=== PATIENT | male | born 1960 | race Caucasian/White ===

== ENCOUNTER 2019-04-19 07:41 | Inpatient (IN) | payer BC ==
[~2019-04-19] VITALS: Ht 172.7 cm; Wt 93.9 kg
[2019-04-19] VITALS (20 sets, daily range): BP systolic 125–161; BP diastolic 74–88; PULSE 58–98; RESP 10–16; Ht 172.7 cm; Wt 93.9 kg
[2019-04-19] MEDS ORDERED: CARV3.1260 PO (08:37)
[2019-04-19] MEDS ORDERED: CLOP75TA27 PO (08:37)
[2019-04-19] MEDS ORDERED: ASPI81TA52 PO (08:38)
[2019-04-19] MEDS ORDERED: NITR0.4T39 SL (08:38)
--- NOTE | 2019-04-19 08:47 | RADRPT ---
Vent Rate: 75 bpm RR Interval: 804 msec [place] Interval: 141 msec QRS Duration: 90 msec QT Interval: 393 msec QTC Interval: 438 msec P-R-T [place]: 44 - -18 - 178 degrees Sinus rhythm. anterior infarct, age indeterminate.. nonspecific ST T abn abnormal ECG Electronically Signed By: Michael Oro
[2019-04-19] MEDS: SOD CHLORIDE 0.9% 1,000 ML IV SCH (08:57)
[2019-04-19] MEDS ORDERED: IODIXANOL LOCM 100 ML BTL ONE ×6 (09:26→11:43)
[2019-04-19] MEDS ORDERED: MIDAZOLAM 1 MG/ML 2 ML INJ ONE (09:26)
[2019-04-19] MEDS ORDERED: LIDOCAINE 1% (MDV) 20 ML INJ ONE ×2 (09:26→10:33)
[2019-04-19] MEDS ORDERED: HEPARIN 1000 UNITS/ML 10 ML INJ ONE (09:26)
[2019-04-19] MEDS ORDERED: VERAPAMIL 5 MG INJ ONE (09:26)
[2019-04-19] MEDS ORDERED: NITROGLYCERIN (IC) 100 MCG/ML INJ ONE (09:27)
[2019-04-19] MEDS ORDERED: DIAZEPAM 5 MG TAB PO ONE (09:30)
[2019-04-19] MEDS ORDERED: DIPHENHYDRAMINE 50 MG CAP PO ONE (09:30)
[2019-04-19] MEDS ORDERED: FAMOTIDINE 20 MG TAB PO ONE (09:30)
[2019-04-19] MEDS ORDERED: FENTAnyl 50 MCG/ML VIAL ONE (09:40)
[2019-04-19] MEDS ORDERED: DIPHENHYDRAMINE 50 MG INJ ONE (09:41)
[2019-04-19] MEDS ORDERED: BIVALIRUDIN 250MG /NS 50 ML 50 ML IVPB ONE ×2 (11:17→11:29)
[2019-04-19] MEDS ORDERED: ASPIRIN 325 MG TAB ONE (11:50)
[2019-04-19] MEDS ORDERED: CLOPIDOGREL 300 MG TAB ONE (11:50)
[2019-04-19] MEDS ORDERED: IOHEXOL 350MG/ML 50 ML BTL ONE (11:56)
--- NOTE | 2019-04-19 12:29 | SIPON ---
Date/Time of Note Date/Time of Note DATE: 04/19/19 TIME: 12:27 Operative Report Preoperative Diagnosis 1.abnl stress test 2.PREOP Postoperative Diagnosis 1.obstructive cad s/i stent x 1 to [place] LAD with PARI 2.CORPORATE AFFAIRS MANAGER to R common illiac 3.CORPORATE AFFAIRS MANAGER to R ext illiac Operation/Procedure Performed 1.[facility] 2.peripheral angio 3.PTCA/stent to [place] LAD 3.0 x 28 mm PARI 4.CORPORATE AFFAIRS MANAGER to R common illiac 5.CORPORATE AFFAIRS MANAGER to R ext illiac Surgeon see signature line catering administrative assistant 1.Kike Anesthesia: moderate sedation Estimated blood loss: minimal Transfusion Required none Specimen none Grafts/Implants none Complications none CHERELLE BARDALES April 19, 2019 12:29
[2019-04-19] MEDS ORDERED: AL HYDROX/MG HYDROX/SIMETH 30 ML CUP PO PRN (12:30)
[2019-04-19] MEDS ORDERED: ACETAMINOPHEN 325 MG TAB PO PRN (12:30)
[2019-04-19] MEDS ORDERED: ONDANSETRON 4 MG INJ IV PRN (12:30)
[2019-04-19] MEDS ORDERED: OXYCODONE/ACETAMINOPHEN (5/325) TAB PO PRN (12:30)
[2019-04-19] MEDS: morphine 2 MG INJ IV PRN ×3 (13:15→20:39)
[2019-04-19] MEDS ORDERED: hydrALAzine 20 MG INJ IV PRN (16:00)
--- NOTE | 2019-04-19 17:01 | HP ---
Date/Time of Note Date/Time of Note DATE: 04/19/19 TIME: 17:01 Assessment/Plan VTE Prophylaxis SCD applied (from Nsg): No SCD contraindicated: other Pharmacological prophylaxis: NA/contraindicated Pharm contraindication: surgical contra Lines/Catheters IV Catheter Type (from Nrs): Peripheral IV Assessment/Plan Hospital Course 58-year-old male with comorbidities including hypertension, dyslipidemia, DM, CAD status post coronary artery stenting, ischemic cardiomyopathy, and nicotine use who underwent an elective left heart catheterization because of abnormal stress test with PTCA and stent placement to [place] LAD and PTCA to right common iliac and right external iliac artery. 1. CAD. -Status post PTCA and stenting to the [place] LAD with a drug-eluting stent. -Continue dual antiplatelet therapy. -Continue statins. 2. Peripheral artery disease. -Status post PTCA to right common iliac and right external iliac artery. -Continue dual antiplatelet therapy. 3. Ischemic cardiomyopathy. -2D echocardiogram done at the outside facility in December 2018 showed ejection fraction 40 to 45%. -Resume beta-blockers. -Initiation of HEMANTH inhibitor/ARB will be deferred to cardiology. 4. Hypertension. -Resume antihypertensives. 5. Dyslipidemia. -Continue the patient on statins. 6. DM. -Medication reconciliation shows no medications for DM. -Obtain A1C. -Monitor blood sugar trends. 7. Nicotine use. -Refused nicotine patch. -Cessation will be advised. 8. Obesity. -BMI of 31 kg/m. -Will advise weight reduction. Plan: The patient will be admitted to inpatient telemetry floor. The patient will be started on a low-cholesterol diet. The patient will be started on DVT p rophylaxis. The patient will remain a full code. Activities will be bedrest for at least 6 hours (femoral approach). The rest of the patient's management will be based on the clinical course, inputs from consultants, and the results of diagnostic studies. Based on the patient's clinical presentation, he most probably requires at least 2 midnights' stay for further management and evaluation of his clinical presentation. The patient was seen in collaboration with Dr. Doe. Result Diagram: 04/19/19 0800 04/19/19 0800 Results 24hrs Laboratory Tests Test 04/19/19 08:00 White Blood Count 9.0 Red Blood Count 5.28 Hemoglobin 15.5 Hematocrit 47.4 Mean Corpuscular Volume 89.8 Mean Corpuscular Hemoglobin 29.4 Mean Corpuscular Hemoglobin Concent 32.7 Red Cell Distribution Width 13.6 Platelet Count 259 Mean Platelet Volume 9.7 Immature Granulocytes % 0.300 Neutrophils % 54.0 Lymphocytes % 34.3 Monocytes % 7.9 Eosinophils % 2.7 Basophils % 0.8 Nucleated Red Blood Cells % 0.0 Immature Granulocytes # 0.030 Neutrophils # 4.9 Lymphocytes # 3.1 H Monocytes # 0.7 Eosinophils # 0.2 Basophils # 0.1 Nucleated Red Blood Cells # 0.0 Prothrombin Time 12.2 Prothrombin Time Ratio 1.0 INR International Normalized Ratio 0.89 Activated Partial Thromboplast Time 29.6 Sodium Level 139 Potassium Level 4.3 Chloride Level 106 Carbon Dioxide Level 27 Anion Gap 6 Blood Urea Nitrogen 18 Creatinine 1.09 Est Glomerular Filtrat Rate mL/min > 60 Glucose Level 137 Calcium Level 8.9 Total Bilirubin 0.3 Direct Bilirubin 0.00 Indirect Bilirubin 0.3 Aspartate Amino Transf (AST/SGOT) 33 Alanine Aminotransferase (ALT/SGPT) 31 Alkaline Phosphatase 67 Total Protein 6.9 Albumin 4.0 Globulin 2.90 Albumin/Globulin Ratio 1.37 Triglycerides Level 232 H HPI/ROS Admit Date/Time Admit Date/Time Hx of Present Illness This is a 58-year-old male with past medical history of hypertension, dyslipidemia, DM, CAD status post coronary artery stenting, obesity, nicotine use. The patient was in the process of getting preop clearance for an elective dental procedure as outpatient. Cardiac stress test done at the practice physician's office showed positive stress test. Therefore, the patient was brought electively to [facility] and the patient underwent a left heart catheterization. Catheterization revealed obstructive CAD. The patient had a drug-eluting stent placed to the [place] LAD. Peripheral angiogram revealed an obstructing right common iliac and external iliac artery and the patient underwent PTCA to these vessels. The patient is being admitted to inpatient setting for further monitoring and further evaluation. ROS Subjective hx not possible: other (The patient sedated in the PACU) PMH/Family/Social Past Medical History 1. HTN. 2. CAD, S/P CABG in 2014. 3. Ischemic cardiomyopathy. 4. Dyslipidemia. 5. DM. 6. Depression. 7. Nicotine use. 8. Obesity. Medications Current Medications Sodium Chloride 1,000 ml @ 25 mls/hr Q24H IV Last administered on 04/19/19at 08:57; Admin Dose 25 MLS/HR; Start 04/19/19 at 09:00 Sodium Chloride 1,000 ml @ 20 mls/hr Q24H IV ; Start 04/19/19 at 09:30 Miscellaneous Information (* Miscellaneous Pharmacy Order) Hold all Metformin ... ONCE XX ; Start 04/19/19 at 12:30; Stop 04/21/19 at 12:29 Aspirin (Halfprin) 81 mg DAILY PO ; Start 04/20/19 at 09:00 Clopidogrel Bisulfate (plaVIX) 75 mg DAILY PO ; Start 04/20/19 at 09:00 Acetaminophen (Tylenol Tab) 650 mg Q4H PRN PO PAIN; Start 04/19/19 at 12:30 Oxycodone/ Acetaminophen (Percocet (5/ 325)) 2 tab Q4H PRN PO PAIN; Start 04/19/19 at 12:30 Morphine Sulfate (morphine) 1 mg Q1H PRN IV PAIN Last administered on 04/19/19at 14:33; Admin Dose 1 MG; Start 04/19/19 at 12:30 Al Hydrox/Mg Hydrox/Simethicone (Mag-Al Plus) 30 ml Q4H PRN PO GASTROINTESTINAL UPSET; Start 04/19/19 at 12:30 Ondansetron HCl (Zofran Inj) 4 mg Q4H PRN IV NAUSEA AND/OR VOMITING; Start 04/19/19 at 12:30 Hydralazine HCl (Apresoline) 10 mg Q3 PRN IV ELEVATED BLOOD PRESSURE; Start 04/19/19 at 16:00 Coded Allergies: No Known Drug Allergies (Verified Allergy, Unknown, 04/19/19) Past Surgical History Past Surgical Hx: angioplasty (Multiple times), coronary bypass surgery (in 2015) Family History Significant Family History: heart disease Social History Alcohol Use: rarely Smoking Status: Current every day smoker (10 cigarettes/day) Drug Use: none Exam/Review of Systems Vital Signs Vitals Vital Signs Date Temp Pulse Resp B/P (MAP) Pulse Ox O2 O2 Flow FiO2 Time Delivery Rate 04/19/19 62 10 160/78 97 Room Air 15:09 (105) 04/19/19 98.0 12:49 Exam Exam General: Obese, 58 year-old male lying in bed in no apparent distress. HEENT: Normocephalic, atraumatic. Eyes: Anicteric sclerae, conjunctivae clear. ENT: Nasal septum midline, oral mucosa moist. Neck: Short and obese. Respiratory: Bilaterally diminished breath sounds. No use of accessory muscles of respiration. Expiratory wheezing. Cardiovascular: S1, S2 heard. No murmurs or gallops. Abdomen: Soft, nontender, and nondistended. Bowel sounds positive in all 4 quadrants. Genitourinary: Deferred. Extremities: No cyanosis, no clubbing, no edema. Peripheral pulses palpable. Neurologic: The patient is somnolent. Skin: Normal skin turgor. No skin rashes. Additional Comments Operative Report Preoperative Diagnosis 1.abnl stress test 2.PREOP Postoperative Diagnosis 1.obstructive cad s/i stent x 1 to [place] LAD with PARI 2.KIOSK SALES REPRESENTATIVE to R common illiac 3.KIOSK SALES REPRESENTATIVE to R ext illiac Operation/Procedure Performed 1.[facility] 2.peripheral angio 3.PTCA/stent to [place] LAD 3.0 x 28 mm PARI 4.KIOSK SALES REPRESENTATIVE to R common illiac 5.KIOSK SALES REPRESENTATIVE to R ext illiac CXR IMPRESSION: Mild cardiomegaly with bibasilar atelectasis. Otherwise no acute cardiopulmonary process. LOLA GOODWIN NP April 19, 2019 17:01
[2019-04-19] MEDS: SOD CHLORIDE 0.45% 1,000 ML IV SCH (17:30)
[2019-04-19] MEDS ORDERED: GLUCOSE GEL 15 GRAM TUBE BUCCAL PRN (22:30)
[2019-04-19] MEDS: INSULIN ASPART [NOVOLOG] 3 ML PEN SC SCH (22:30)
[2019-04-19] MEDS ORDERED: GLUCAGON 1 MG INJ IM PRN (22:30)
[2019-04-19] MEDS ORDERED: GLUCOSE GEL 15 GRAM TUBE PO PRN ×2 (22:30)
[2019-04-19] MEDS ORDERED: DEXTROSE 50% 50 ML SYRINGE IV PRN ×2 (22:30)
[2019-04-20] VITALS (11 sets, daily range): BP systolic 108–137; BP diastolic 56–80; PULSE 76–114; RESP 17–20
--- NOTE | 2019-04-20 06:25 | CARRPT ---
DATE OF PROCEDURE: 04/19/2019 TYPE OF PROCEDURE: 1. Left heart catheterization. 2. Coronary angiography. 3. Bypass graft angiography including CHACON arterial graft. 4. Percutaneous transluminal coronary angioplasty with placement of Xience drug-eluting stent x1 to mid LAD, 3.0 x 28 mm. 5. Distal aortography. 6. Bilateral iliofemoral runoff. 7. Right femoral angiography. 8. Percutaneous transluminal angioplasty to right common iliac. 9. Percutaneous transluminal angioplasty to right external iliac. 10. Moderate conscious sedation. ATTENDING PHYSICIAN: Dr. Cherelle Baron REFERRING PHYSICIAN: Dr. Renee INDICATIONS: Positive stress test for anterior ischemia, high-risk marker for cardiovascular events, history of CABG. TYPE OF ANESTHESIA: Conscious and local. BRIEF HISTORY: Mr. Linares is a 58-year-old male with a history of coronary artery disease status post coronary bypass graft surgery in 2014, [place], presented preoperative for a dental procedure an d cardiac stress test revealing anterior ischemia and, therefore, referred for left heart catheteriza tion to assess for possibility of significant obstructive coronary artery disease lending to positive stress test findings of anterior ischemia. DESCRIPTION OF PROCEDURE: After informed consent was obtained, the patient was brought to the [facility] cardiac petroleum refinery laborer where his right and left groins were prepped and draped in th e usual sterile fashion. A 2% lidocaine was infiltrated into the right groin in order to achieve mikey quate local anesthesia. Using modified Seldinger technique, the right femoral artery subsequently was cannulated and a 6-Fren ch arterial sheath was placed. At this time, we did angiography in the right femoral, revealing the patient to have a 90% to 95% stenosis in his right common iliac and inability to pass the wire distal . Subsequently, access was gained on the left side and a 6-[place] arterial sheath was placed. A 6-F [place] JL4 catheter was used to cannulate the left main coronary ostium. With contrast injection, mul tiple views of the left coronary arterial system were obtained. JL4 was removed over guidewire and J R4 was used to cannulate the right coronary arterial ostium. With contrast injection, multiple views of the right coronary arterial system were obtained. JR4 was then used to cannulate saphenous vein graft supplying a likely left-sided PDA, distal ilium, a saphenous vein graft to a mid OM, and then L GREGORY to LAD, and subsequently was removed. At this time, we used a multipurpose in order to try to id entify any further right-sided grafts which we did not find. We then used a pigtail which was passed into the LV. LVEDP was measured, pulled back across the aortic valve, and placed in the aortic root . Aortic root angiography was undertaken, revealing the grafts that were identified. No further gra fts were found. Subsequently at this time, given the findings of a high-grade lesion, 90% to 95% in the patient's mid LAD status post graft insertion, I moved into an interventional procedure. A 6-[place] guidewire was used to cannulate the internal mammary artery. A Button Spindler 50 guidewire was passed distal to the lesion . The patient was placed on Angiomax bolus continuous infusion. A 2.5 x 15 mm balloon was used to p redilate the lesion up to 16 atmospheres x2. It was removed and lesion was stented with a 3.0 x 28 m m drug-eluting stent up to 16 atmospheres x2. The stent delivery system was removed. Followup angio gram was obtained with excellent deployment of stent, JOE 3 flow throughout the vessel with no signs of complication including perforation or dissection. Subsequently at this time, the was remov ed after the patient had had followup angiograms after 200 IC of nitroglycerin and showing excellent result. Subsequently at this time, it was removed and I moved directly into a peripheral procedure. The christopher ent already at this time had bilateral right and left femoral access. We placed a pigtail in the mid aorta and did mid aortography and then distal aortography revealing high-grade lesion in the patient 's right common iliac, but as we were getting to a high contrast load and as a sheath was in, it was elected to remove the pigtail catheter and enter the right femoral access. A Glidewire was passed di stal to the lesion in the right common iliac, and this lesion was ballooned with a 5.0 x 40 mm balloo n up to 12 to 14 x 2, and then pulled down to an area in the external iliac to a high-grade lesion an d inflated to 12 to 14 atmospheres x2 and removed. Followup x-ray was obtained revealing improved fl ow down this vessel now so that when the patient comes back for peripheral stenting, the vessel could be accessed as there was no palpable pulse prior to this, now there is palpable pulse. Subsequentl y at this time, the balloons were removed. The patient had bilateral femoral angiography revealing t he sheath was also placed in the right common femoral artery. Subsequently, a 6-[place] Perclose nilsa ce was used to seal both sides. This completed the procedure. There were no noted complications. FINDINGS: 1. Coronary angiography: Left main: Short, 4 mm, no significant stenosis. Circumflex proximally i s a 3 mm vessel and has a tubular lesion approximately 50% and then becomes 100% occluded in its mid portion where we still can see competitive flow consistent with a patent graft down there. There is a mid-branching obtuse marginal 2.5 mm with no significant focal stenosis, and a ramus branch sub-2 m m vessel with no significant focal stenosis. LAD proximally is a 2 mm vessel. Shortly after its aleksandra eoff, it becomes 100% occluded. The patient's right coronary artery proximally is a 3 mm vessel, and shortly after its takeoff, it is 100% occluded. 2. Bypass graft angiography did show the patient to have a widely patent saphenous vein graft supply ing a distal OM or a left-sided PDA with no intervening stenosis. A second saphenous vein graft supp lying a more distal-placed OM widely patent with no significant intervening stenosis. The [place]AC[place] arter ial graft supplies a very reasonably sized distal LAD, with the mid LAD having a 95% mid body stenosi s. Subclavian angiography revealed no intervening stenosis in the subclavian. 3. Mid aortography showed the patient to have no significant renal artery stenosis bilaterally. 4. Distal aortography with bilateral runoff revealed the patient to have a 95% to 99% mid right comm on iliac stenosis and then a 70% to 80% mid external iliac stenosis on the right. In the left common iliac, there is a mid body 30% stenosis, and in the external iliac, there is a diffuse 50% to 60% st enosis. 5. PTCA and stent placement: Prior to PTCA and stent placement within the patient's [place] LAD, the re was a high-grade 99% stenosis. Post PTCA and stent placement, there was no residual stenosis, NHI I 3 flow to the vessel, no signs of complication. 6. PETROLEUM ENGINEERING PROFESSOR in right common iliac: Prior to PETROLEUM ENGINEERING PROFESSOR in the right common iliac, patient had a 99% stenosis. Post PETROLEUM ENGINEERING PROFESSOR, the patient had now residual 60% stenosis but excellent flow. 7. PETROLEUM ENGINEERING PROFESSOR in external iliac: Prior to PETROLEUM ENGINEERING PROFESSOR in the external iliac on the right side, patient had an 80% stenosis. Post PETROLEUM ENGINEERING PROFESSOR, patient had residual 20% stenosis with excellent flow. TOTAL FLUOROSCOPY TIME: 28 minutes TOTAL CONTRAST: 450 mL IMPRESSION: 1. Multivessel [place] obstructive coronary artery disease. 2. Widely patent saphenous vein graft to obtuse marginal, likely obtuse marginal to left-sided poste rior descending artery, and widely patent left internal mammary artery to left anterior descending wi th a high-grade stenosis distal to insertion of graft, status post successful percutaneous translumin al angioplasty and stent placement to [place] left anterior descending, 3.0 x 28 mm drug-eluting stent . 3. High-grade stenosis within the patient's right common iliac, status post successful percutaneous transluminal angioplasty with improvement in flow. 4. High-grade stenosis in the patient's right external iliac, status post percutaneous transluminal angioplasty with excellent result. RECOMMENDATIONS: In light of procedural findings at this time, we would: 1. Maintain patient on aspirin 81 mg 1 tab p.o. daily indefinitely. 2. Plavix 75 mg 1 tab p.o. daily for at least 6 months. 3. The patient will be brought back in order to undergo a staged procedure to stent his right common iliac due to continued high-grade stenosis but improved status post PETROLEUM ENGINEERING PROFESSOR, but due to contrast load, t he patient will be brought back at a later date. Dictated By: CHERELLE LOUIS/KENA Conf#: [id number] DID#: [id number] CC: Dr. Renee;*End*
[2019-04-20] MEDS: INSULIN ASPART [NOVOLOG] 3 ML PEN SC SCH ×4 (07:55→20:46)
--- NOTE | 2019-04-20 09:35 | RADRPT ---
Vent Rate: 81 bpm RR Interval: 744 msec [place] Interval: 144 msec QRS Duration: 90 msec QT Interval: 378 msec QTC Interval: 438 msec P-R-T [place]: 48 - 3 - 162 degrees Sinus rhythm...normal P axis, V-rate 50- 99 Anterior infarct, age indeterminate... Lateral wall also involved...lat Q or ST-T abnormalities Electronically Signed By: Michael Oro
--- NOTE | 2019-04-20 09:39 | RADRPT ---
Vent Rate: 65 bpm RR Interval: 928 msec AR Interval: 165 msec QRS Duration: 90 msec QT Interval: 440 msec QTC Interval: 457 msec P-R-T [place]: 53 - 3 - 207 degrees Sinus rhythm...normal P axis, V-rate 50- 99 Anterior infarct, age indeterminate...Q >35mS, T neg, in V2-V5 Abnormal T, consider ischemia, diffuse leads...T <-0.20mV, ant/lat/inf Lateral wall also involved...lat Q or ST-T abnormalities Electronically Signed By: Michael Oro
[2019-04-20] MEDS: ASPIRIN (EC) 81 MG TAB PO SCH (11:48)
[2019-04-20] MEDS: CLOPIDOGREL 75 MG TAB PO SCH (11:48)
[2019-04-20] MEDS: SOD CHLORIDE 0.9% 1,000 ML IV SCH (11:49)
[2019-04-20] MEDS: SOD CHLORIDE 0.45% 1,000 ML IV SCH (11:49)
--- NOTE | 2019-04-20 16:47 | PN ---
Date/Time of Note Date/Time of Note DATE: 04/20/19 TIME: 16:47 Assessment/Plan VTE Prophylaxis Risk score (from Ns)>0 risk: 4 SCD applied (from Ns): No SCD contraindicated: low risk/ambulating, other Pharmacological prophylaxis: NA/contraindicated Pharm contraindication: low risk/ambulating Lines/Catheters IV [facility]from [facility] Peripheral IV Assessment/Plan Hospital Course SUBJECTIVE: The patient denies any chest pain. Complains of minimal bilateral inguinal area discomfort. OBJECTIVE: Physical Exam General: Obese, 58 year-old male lying in bed in no apparent distress. HEENT: Normocephalic, atraumatic. Eyes: Anicteric sclerae, conjunctivae clear. ENT: Nasal septum midline, oral mucosa moist. Neck: Short and obese. Respiratory: Bilaterally diminished breath sounds. No use of accessory muscles of respiration. Expiratory wheezing. Cardiovascular: S1, S2 heard. No murmurs or gallops. Abdomen: Soft, nontender, and nondistended. Bowel sounds positive in all 4 quadrants. Genitourinary: Deferred. Extremities: No cyanosis, no clubbing, no edema. Peripheral pulses palpable. Neurologic: The patient is awake, alert, and oriented. Skin: Normal skin turgor. No skin rashes. Labs & Vitals per chart ASSESSMENT & PLAN 58-year-old male with comorbidities including hypertension, dyslipidemia, DM, CAD status post coronary artery stenting, ischemic cardiomyopathy, and nicotine use who underwent an elective left heart catheterization because of abnormal stress test with PTCA and stent placement to [place] LAD and PTCA to right common iliac and right external iliac artery. 1. CAD. -Status post PTCA and stenting to the [place] LAD with a drug-eluting stent. -Continue dual antiplatelet therapy. -Continue statins. 2. Peripheral artery disease. -Status post PTCA to right common iliac and right external iliac artery. -Scheduled for further intervention to the right common iliac artery. -Continue dual antiplatelet therapy. 3. Ischemic cardiomyopathy. -2D echocardiogram done at the outside facility in December 2018 showed ejection fraction 40 to 45%. -Continue beta-blockers. -Initiation of HEMANTH inhibitor/ARB will be deferred to cardiology. 4. Hypertension. -Continue antihypertensives. 5. Dyslipidemia. -Continue the patient on statins. 6. DM. -Medication reconciliation shows no medications for DM. -A1C 7.2. -Patient denied using any diabetes medications. -Monitor blood sugar trends. 7. Nicotine use. -Refused nicotine patch. -Cessation will be advised. 8. Obesity. -BMI of 31 kg/m. -Will advise weight reduction. 9. Fluids, electrolytes, and nutrition. -Low-cholesterol, low carbohydrate diet. 10. DVT prophylaxis. -Ambulation. 11. Plan. -Continue dual antiplatelet therapy. -Await further percutaneous intervention of the right common iliac artery. The patient was seen in collaboration with Dr. Doe. Result Diagram: 04/20/19 0809 04/20/19 0809 Results 24hrs Laboratory Tests Test 04/19/19 22:30 04/20/19 08:09 04/20/19 08:10 04/20/19 11:47 Bedside Glucose 125 125 150 White Blood Count 14.3 #H Red Blood Count 5.18 Hemoglobin 15.1 Hematocrit 46.6 Mean Corpuscular 90.0 Volume Mean Corpuscular 29.2 Hemoglobin Mean Corpuscular 32.4 Hemoglobin Concent Red Cell 13.6 Distribution Width Platelet Count 256 Mean Platelet Volume 9.8 Immature 0.400 Granulocytes % Neutrophils % 70.1 Lymphocytes % 19.8 Monocytes % 8.4 Eosinophils % 0.9 Basophils % 0.4 Nucleated Red Blood 0.0 Cells % Immature 0.060 H Granulocytes # Neutrophils # 10.0 H Lymphocytes # 2.8 Monocytes # 1.2 H Eosinophils # 0.1 Basophils # 0.1 Nucleated Red Blood 0.0 Cells # Sodium Level 137 Potassium Level 4.6 Chloride Level 103 Carbon Dioxide Level 28 Anion Gap 6 Blood Urea Nitrogen 14 Creatinine 1.01 Est Glomerular > 60 Filtrat Rate mL/min Glucose Level 127 Calcium Level 8.7 Phosphorus Level 4.3 Magnesium Level 2.0 Total Bilirubin 0.8 Direct Bilirubin 0.00 Indirect Bilirubin 0.8 Aspartate Amino 42 Transf (AST/SGOT) Alanine 31 Aminotransferase (AL T/SGPT) Alkaline Phosphatase 65 Total Protein 7.1 Albumin 3.8 Globulin 3.30 H Albumin/Globulin 1.15 Ratio Triglycerides Level 175 H Cholesterol Level 223 H LDL Cholesterol, 153 Calculated HDL Cholesterol 35 Cholesterol/HDL 6.3 Ratio Exam/Review of Systems Exam Vitals Vital Signs Date Temp Pulse Resp B/P (MAP) Pulse Ox O2 O2 Flow FiO2 Time Delivery Rate 04/20/19 98.1 79 19 114/56 96 15:09 (75) 04/20/19 2.0 08:00 04/19/19 Room Air 15:09 Intake and Output 04/19/19 04/19/19 04/20/19 1515:00 23:00 07:00 IntakeIntake Total 370 ml OutputOutput Total 500 ml 850 ml BalanceBalance -500 ml -480 ml Results Results 24hrs Laboratory Tests Test 04/19/19 22:30 04/20/19 08:09 04/20/19 08:10 04/20/19 11:47 Bedside Glucose 125 125 150 White Blood Count 14.3 #H Red Blood Count 5.18 Hemoglobin 15.1 Hematocrit 46.6 Mean Corpuscular 90.0 Volume Mean Corpuscular 29.2 Hemoglobin Mean Corpuscular 32.4 Hemoglobin Concent Red Cell 13.6 Distribution Width Platelet Count 256 Mean Platelet Volume 9.8 Immature 0.400 Granulocytes % Neutrophils % 70.1 Lymphocytes % 19.8 Monocytes % 8.4 Eosinophils % 0.9 Basophils % 0.4 Nucleated Red Blood 0.0 Cells % Immature 0.060 H Granulocytes # Neutrophils # 10.0 H Lymphocytes # 2.8 Monocytes # 1.2 H Eosinophils # 0.1 Basophils # 0.1 Nucleated Red Blood 0.0 Cells # Sodium Level 137 Potassium Level 4.6 Chloride Level 103 Carbon Dioxide Level 28 Anion Gap 6 Blood Urea Nitrogen 14 Creatinine 1.01 Est Glomerular > 60 Filtrat Rate mL/min Glucose Level 127 Calcium Level 8.7 Phosphorus Level 4.3 Magnesium Level 2.0 Total Bilirubin 0.8 Direct Bilirubin 0.00 Indirect Bilirubin 0.8 Aspartate Amino 42 Transf (AST/SGOT) Alanine 31 Aminotransferase (AL T/SGPT) Alkaline Phosphatase 65 Total Protein 7.1 Albumin 3.8 Globulin 3.30 H Albumin/Globulin 1.15 Ratio Triglycerides Level 175 H Cholesterol Level 223 H LDL Cholesterol, 153 Calculated HDL Cholesterol 35 Cholesterol/HDL 6.3 Ratio Medications Medication Current Medications Sodium Chloride 1,000 ml @ 25 mls/hr Q24H IV Last administered on 04/19/19at 08 :57; Admin Dose 25 MLS/HR; Start 04/19/19 at 09:00 Sodium Chloride 1,000 ml @ 20 mls/hr Q24H IV Last administered on 04/19/19at 17:30; Admin Dose 20 MLS/HR; Start 04/19/19 at 09:30 Miscellaneous Information (* Miscellaneous Pharmacy Order) Hold all Metformin ... ONCE XX ; Start 04/19/19 at 12:30; Stop 04/21/19 at 12:29 Aspirin (Halfprin) 81 mg DAILY PO Last administered on 04/20/19at 11:48; Admin Dose 81 MG; Start 04/20/19 at 09:00 Clopidogrel Bisulfate (plaVIX) 75 mg DAILY PO Last administered on 04/20/19at 11:48; Admin Dose 75 MG; Start 04/20/19 at 09:00 Acetaminophen (Tylenol Tab) 650 mg Q4H PRN PO PAIN; Start 04/19/19 at 12:30 Oxycodone/ Acetaminophen (Percocet (5/ 325)) 2 tab Q4H PRN PO PAIN; Start 04/19/19 at 12:30 Morphine Sulfate (morphine) 1 mg Q1H PRN IV PAIN Last administered on 04/19/19at 20:39; Admin Dose 1 MG; Start 04/19/19 at 12:30 Al Hydrox/Mg Hydrox/Simethicone (Mag-Al Plus) 30 ml Q4H PRN PO GASTROINTESTINAL UPSET; Start 04/19/19 at 12:30 Ondansetron HCl (Zofran Inj) 4 mg Q4H PRN IV NAUSEA AND/OR VOMITING; Start 04/19/19 at 12:30 Hydralazine HCl (Apresoline) 10 mg Q3 PRN IV ELEVATED BLOOD PRESSURE Last administered on 04/19/19at 17:46; Admin Dose 10 MG; Start 04/19/19 at 16:00 Carvedilol (Coreg) 3.125 mg BID PO Last administered on 04/20/19at 11:48; Admin Dose 3.125 MG; Start 04/19/19 at 21:00 Insulin Aspart (Novolog Insulin Pen) NOVOLOG *MILD* ALGORITHM WITH MEALS BEDTIME SC ; Start 04/19/19 at 22:30 Miscellaneous Information 1 ea NOTE XX ; Start 04/19/19 at 22:30 Glucose (Glutose) 15 gm Q15M PRN PO DECREASED GLUCOSE; Start 04/19/19 at 22:30 Glucose (Glutose) 22.5 gm Q15M PRN PO DECREASED GLUCOSE; Start 04/19/19 at 22:30 Dextrose (D50w Syringe) 25 ml Q15M PRN IV DECREASED GLUCOSE; Start 04/19/19 at 22:30 Dextrose (D50w Syringe) 50 ml Q15M PRN IV DECREASED GLUCOSE; Start 04/19/19 at 22:30 Glucagon (Glucagen) 1 mg Q15M PRN IM DECREASED GLUCOSE; Start 04/19/19 at 22:30 Glucose (Glutose) 15 gm Q15M PRN BUCCAL DECREASED GLUCOSE; Start 04/19/19 at 22:30 LOLA GOODWIN NP April 20, 2019 16:47
[2019-04-20] MEDS ORDERED: DIPHENHYDRAMINE 50 MG CAP PO ONE (19:30)
[2019-04-20] MEDS ORDERED: DIAZEPAM 5 MG TAB PO ONE (19:30)
[2019-04-21] VITALS (10 sets, daily range): BP systolic 118–124; BP diastolic 66–73; PULSE 75–90; RESP 18–20
[2019-04-21] MEDS: INSULIN ASPART [NOVOLOG] 3 ML PEN SC SCH ×4 (07:55→20:59)
[2019-04-21] MEDS: SOD CHLORIDE 0.9% 1,000 ML IV SCH (08:23)
[2019-04-21] MEDS: ASPIRIN (EC) 81 MG TAB PO SCH (08:26)
[2019-04-21] MEDS: CLOPIDOGREL 75 MG TAB PO SCH (08:26)
[2019-04-21] MEDS: SOD CHLORIDE 0.45% 1,000 ML IV SCH (08:28)
--- NOTE | 2019-04-21 10:04 | PN ---
Date/Time of Note Date/Time of Note DATE: 04/21/19 TIME: 10:04 Assessment/Plan VTE Prophylaxis Risk score (from Ns)>0 risk: 4 SCD applied (from Ns): No SCD contraindicated: other Pharmacological prophylaxis: NA/contraindicated Pharm contraindication: low risk/ambulating Lines/Catheters [facility] [place] Urinary Cath still in place: No Assessment/Plan Hospital Course SUBJECTIVE: The patient denies any chest pain. Complains of minimal bilateral inguinal area discomfort. OBJECTIVE: Physical Exam General: Obese, 58 year-old male lying in bed in no apparent distress. HEENT: Normocephalic, atraumatic. Eyes: Anicteric sclerae, conjunctivae clear. ENT: Nasal septum midline, oral mucosa moist. Neck: Short and obese. Respiratory: Bilaterally diminished breath sounds. No use of accessory muscles of respiration. Expiratory wheezing. Cardiovascular: S1, S2 heard. No murmurs or gallops. Abdomen: Soft, nontender, and nondistended. Bowel sounds positive in all 4 quadrants. Genitourinary: Deferred. Extremities: No cyanosis, no clubbing, no edema. Peripheral pulses palpable. Neurologic: The patient is awake, alert, and oriented. Skin: Normal skin turgor. No skin rashes. Labs & Vitals per chart ASSESSMENT & PLAN 58-year-old male with comorbidities including hypertension, dyslipidemia, DM, CAD status post coronary artery stenting, ischemic cardiomyopathy, and nicotine use who underwent an elective left heart catheterization because of abnormal stress test with PTCA and stent placement to [place] LAD and PTCA to right common iliac and right external iliac artery. 1. CAD. -Status post PTCA and stenting to the [place] LAD with a drug-eluting stent. -Continue dual antiplatelet therapy. -Continue statins. 2. Peripheral artery disease. -Status post PREBOARDER to right common iliac and right external iliac artery. -Scheduled for further intervention to the right common iliac artery. -Continue dual antiplatelet therapy. 3. Ischemic cardiomyopathy. -2D echocardiogram done at the outside facility in December 2018 showed ejection fraction 40 to 45%. -Continue beta-blockers. -Initiation of HEMANTH inhibitor/ARB will be deferred to cardiology. 4. Hypertension. -Continue antihypertensives. 5. Dyslipidemia. -Continue the patient on statins. 6. DM. -Medication reconciliation shows no medications for DM. -A1C 7.2. -Patient denied using any diabetes medications. -Monitor blood sugar trends. 7. Nicotine use. -Refused nicotine patch. -Cessation will be advised. 8. Obesity. -BMI of 31 kg/m. -Will advise weight reduction. 9. Fluids, electrolytes, and nutrition. -Low-cholesterol, low carbohydrate diet. 10. DVT prophylaxis. -Ambulation. 11. Plan. -Continue dual antiplatelet therapy. -Await further percutaneous intervention of the right common iliac artery. The patient was seen in collaboration with Dr. Doe. Result Diagram: 04/21/1937 04/21/19 06 Results 24hrs Laboratory Tests Test 04/20/19 11:47 04/20/19 17:44 04/20/19 20:05 04/21/19 06:37 Bedside Glucose 150 125 201 White Blood Count 11.5 H Red Blood Count 4.99 Hemoglobin 14.6 Hematocrit 44.6 Mean Corpuscular 89.4 Volume Mean Corpuscular 29.3 Hemoglobin Mean Corpuscular 32.7 Hemoglobin Concent Red Cell 13.5 Distribution Width Platelet Count 243 Mean Platelet Volume 9.8 Immature 0.300 Granulocytes % Neutrophils % 61.2 Lymphocytes % 26.1 Monocytes % 9.1 Eosinophils % 2.7 Basophils % 0.6 Nucleated Red Blood 0.0 Cells % Immature 0.040 H Granulocytes # Neutrophils # 7.0 Lymphocytes # 3.0 H Monocytes # 1.1 H Eosinophils # 0.3 Basophils # 0.1 Nucleated Red Blood 0.0 Cells # Sodium Level 139 Potassium Level 4.1 Chloride Level 105 Carbon Dioxide Level 29 Anion Gap 5 Blood Urea Nitrogen 14 Creatinine 1.02 Est Glomerular > 60 Filtrat Rate mL/min Glucose Level 129 Calcium Level 8.9 Phosphorus Level 3.7 Magnesium Level 2.0 Test 04/21/19 08:26 Bedside Glucose 140 Exam/Review of Systems Exam Vitals Vital Signs Date Temp Pulse Resp B/P (MAP) Pulse Ox O2 O2 Flow FiO2 Time Delivery Rate 04/21/19 2.0 07:55 04/21/19 97.8 90 20 121/71 92 Room Air 07:10 (88) Intake and Output 04/20/19 04/20/19 04/21/19 1515:00 23:00 07:00 IntakeIntake Total 800 ml OutputOutput Total 400 ml BalanceBalance 400 ml Results Results 24hrs Laboratory Tests Test 04/20/19 11:47 04/20/19 17:44 04/20/19 20:05 04/21/19 06:37 Bedside Glucose 150 125 201 White Blood Count 11.5 H Red Blood Count 4.99 Hemoglobin 14.6 Hematocrit 44.6 Mean Corpuscular 89.4 Volume Mean Corpuscular 29.3 Hemoglobin Mean Corpuscular 32.7 Hemoglobin Concent Red Cell 13.5 Distribution Width Platelet Count 243 Mean Platelet Volume 9.8 Immature 0.300 Granulocytes % Neutrophils % 61.2 Lymphocytes % 26.1 Monocytes % 9.1 Eosinophils % 2.7 Basophils % 0.6 Nucleated Red Blood 0.0 Cells % Immature 0.040 H Granulocytes # Neutrophils # 7.0 Lymphocytes # 3.0 H Monocytes # 1.1 H Eosinophils # 0.3 Basophils # 0.1 Nucleated Red Blood 0.0 Cells # Sodium Level 139 Potassium Level 4.1 Chloride Level 105 Carbon Dioxide Level 29 Anion Gap 5 Blood Urea Nitrogen 14 Creatinine 1.02 Est Glomerular > 60 Filtrat Rate mL/min Glucose Level 129 Calcium Level 8.9 Phosphorus Level 3.7 Magnesium Level 2.0 Test 04/21/19 08:26 Bedside Glucose 140 Medications Medication Current Medications Sodium Chloride 1,000 ml @ 25 mls/hr Q24H IV Last administered on 04/19/19at 08:57; Admin Dose 25 MLS/HR; Start 04/19/19 at 09:00 Sodium Chloride 1,000 ml @ 20 mls/hr Q24H IV Last administered on 04/19/19at 17:30; Admin Dose 20 MLS/HR; Start 04/19/19 at 09:30 Miscellaneous Information (* Miscellaneous Pharmacy Order) Hold all Metformin ... ONCE XX ; Start 04/19/19 at 12:30; Stop 04/21/19 at 12:29 Aspirin (Halfprin) 81 mg DAILY PO Last administered on 04/21/19at 08:26; Admin Dose 81 MG; Start 04/20/19 at 09:00 Clopidogrel Bisulfate (plaVIX) 75 mg DAILY PO Last administered on 04/21/19at 08:26; Admin Dose 75 MG; Start 04/20/19 at 09:00 Acetaminophen (Tylenol Tab) 650 mg Q4H PRN PO PAIN; Start 04/19/19 at 12:30 Oxycodone/ Acetaminophen (Percocet (5/ 325)) 2 tab Q4H PRN PO PAIN; Start 04/19/19 at 12:30 Morphine Sulfate (morphine) 1 mg Q1H PRN IV PAIN Last administered on 04/19/19at 20:39; Admin Dose 1 MG; Start 04/19/19 at 12:30 Al Hydrox/Mg Hydrox/Simethicone (Mag-Al Plus) 30 ml Q4H PRN PO GASTROINTESTINAL UPSET; Start 04/19/19 at 12:30 Ondansetron HCl (Zofran Inj) 4 mg Q4H PRN IV NAUSEA AND/OR VOMITING; Start at 12:30 Hydralazine HCl (Apresoline) 10 mg Q3 PRN IV ELEVATED BLOOD PRESSURE Last administered on 04/19/19at 17:46; Admin Dose 10 MG; Start 04/19/19 at 16:00 Carvedilol (Coreg) 3.125 mg BID PO Last administered on 04/21/19at 08:27; Admin Dose 3.125 MG; Start 04/19/19 at 21:00 Insulin Aspart (Novolog Insulin Pen) NOVOLOG *MILD* ALGORITHM WITH MEALS BEDTIME SC Last administered on 04/20/19at 20:46; Admin Dose 1 UNIT; Start 04/19/19 at 22:30 Miscellaneous Information 1 ea NOTE XX ; Start 04/19/19 at 22:30 Glucose (Glutose) 15 gm Q15M PRN PO DECREASED GLUCOSE; Start 04/19/19 at 22:30 Glucose (Glutose) 22.5 gm Q15M PRN PO DECREASED GLUCOSE; Start 04/19/19 at 22:30 Dextrose (D50w Syringe) 25 ml Q15M PRN IV DECREASED GLUCOSE; Start 04/19/19 at 22:30 Dextrose (D50w Syringe) 50 ml Q15M PRN IV DECREASED GLUCOSE; Start 04/19/19 at 22:30 Glucagon (Glucagen) 1 mg Q15M PRN IM DECREASED GLUCOSE; Start 04/19/19 at 22:30 Glucose (Glutose) 15 gm Q15M PRN BUCCAL DECREASED GLUCOSE; Start 04/19/19 at 22:30 LOLA GOODWIN NP April 21, 2019 10:04
[2019-04-21] MEDS ORDERED: LIDOCAINE 1% (MDV) 20 ML INJ ONE (11:15)
[2019-04-21] MEDS ORDERED: IODIXANOL LOCM 100 ML BTL ONE (11:15)
[2019-04-21] MEDS ORDERED: HEPARIN 1000 UNITS/ML 10 ML INJ ONE (11:15)
[2019-04-21] MEDS ORDERED: FENTAnyl 50 MCG/ML VIAL ONE (11:15)
[2019-04-21] MEDS ORDERED: MIDAZOLAM 1 MG/ML 2 ML INJ ONE (11:16)
--- NOTE | 2019-04-21 12:07 | CONS ---
Assessment/Plan Assessment/Plan Hospital Course (Demo Recall) IMP: 1.cad s/p cabg with stenosis after insertion of CHACON graft now s/p stent to [place] LAD with PARI poD#2 2.chjest pain' 3.abnl mpi-prior to cath 4. PAD with illiac artery high grade stenosis s/p [employer] POD#2 5.HTN 6. HL 7. DM Recc: -Tele -serial ecg's -continue asa/plavix -Contineu coreg -For LE angio today with probable Stent placement to R common iliac which was not able to be done 04/19 due to contrast load/radiation time for PTCA of [place] LAD and diagnostic C Consultation Date/Type/Reason Admit Date/Time April 20, 2019 at 16:45 Initial Consult Date 04/19/19 Type of Consult Cardiology Reason for Consultation chest pain/abnl mpi/PAD Requesting Provider: AYANNA MCCLOUD MD Date/Time of Note DATE: 04/21/19 TIME: 12:00 Exam/Review of Systems Vital Signs Vitals Vital Signs Date Temp Pulse Resp B/P (MAP) Pulse Ox O2 O2 Flow FiO2 Time Delivery Rate 04/21/19 2.0 07:55 04/21/19 97.8 90 20 121/71 92 Room Air 07:10 (88) Intake and Output 04/20/19 04/20/19 04/21/19 1515:00 23:00 07:00 IntakeIntake Total 800 ml OutputOutput Total 400 ml BalanceBalance 400 ml Exam Exam Review of Systems: CONSTITUTIONAL: No fevers, chills. PULMONARY: No sob CARDIOVASCULAR: No chest pain/palpitations GASTROINTESTINAL: No nausea/vomiting. GENITOURINARY: No hematuria/dysuria. MUSCULOSKELETAL: No myagias/arthalgias. PSYCHIATRIC: The patient denies depression. NEUROLOGIC: No weakness Constitutional: alert, oriented Psych: no complaints Head: normocephalic ENMT: mucosa pink and moist Neck: supple, jvd (9 cm water) Respiratory: diminished breath sounds Cardiovascular: regular rate and rhythm Gastrointestinal: soft, non-tender Musculoskeletal: muscle tone (normal) Extremities: edema (none) Neurological: other (No focal deficits) Labs Result Diagram: 04/21/19 0637 04/21/19 0637 Results 24hrs Laboratory Tests Test 04/20/19 17:44 04/20/19 20:05 04/21/19 06:37 04/21/19 08:26 Bedside Glucose 125 201 140 White Blood Count 11.5 H Red Blood Count 4.99 Hemoglobin 14.6 Hematocrit 44.6 Mean Corpuscular 89.4 Volume Mean Corpuscular 29.3 Hemoglobin Mean Corpuscular 32.7 Hemoglobin Concent Red Cell 13.5 Distribution Width Platelet Count 243 Mean Platelet Volume 9.8 Immature 0.300 Granulocytes % Neutrophils % 61.2 Lymphocytes % 26.1 Monocytes % 9.1 Eosinophils % 2.7 Basophils % 0.6 Nucleated Red Blood 0.0 Cells % Immature 0.040 H Granulocytes # Neutrophils # 7.0 Lymphocytes # 3.0 H Monocytes # 1.1 H Eosinophils # 0.3 Basophils # 0.1 Nucleated Red Blood 0.0 Cells # Sodium Level 139 Potassium Level 4.1 Chloride Level 105 Carbon Dioxide Level 29 Anion Gap 5 Blood Urea Nitrogen 14 Creatinine 1.02 Est Glomerular > 60 Filtrat Rate mL/min Glucose Level 129 Calcium Level 8.9 Phosphorus Level 3.7 Magnesium Level 2.0 Medications Medications Current Medications Sodium Chloride 1,000 ml @ 25 mls/hr Q24H IV Last administered on 04/19/19at 08:57; Admin Dose 25 MLS/HR; Start 04/19/19 at 09:00 Sodium Chloride 1,000 ml @ 20 mls/hr Q24H IV Last administered on 04/19/19at 17:30; Admin Dose 20 MLS/HR; Start 04/19/19 at 09:30 Miscellaneous Information (* Miscellaneous Pharmacy Order) Hold all Metformin ... ONCE XX ; Start 04/19/19 at 12:30; Stop 04/21/19 at 12:29 Aspirin (Halfprin) 81 mg DAILY PO Last administered on 04/21/19at 08:26; Admin Dose 81 MG; Start 04/20/19 at 09:00 Clopidogrel Bisulfate (plaVIX) 75 mg DAILY PO Last administered on 04/21/19at 08:26; Admin Dose 75 MG; Start 04/20/19 at 09:00 Acetaminophen (Tylenol Tab) 650 mg Q4H PRN PO PAIN; Start 04/19/19 at 12:30 Oxycodone/ Acetaminophen (Percocet (5/ 325)) 2 tab Q4H PRN PO PAIN; Start 04/19/19 at 12:30 Morphine Sulfate (morphine) 1 mg Q1H PRN IV PAIN Last administered on 04/19/19at 20:39; Admin Dose 1 MG; Start 04/19/19 at 12:30 Al Hydrox/Mg Hydrox/Simethicone (Mag-Al Plus) 30 ml Q4H PRN PO GASTROINTESTINAL UPSET; Start 04/19/19 at 12:30 Ondansetron HCl (Zofran Inj) 4 mg Q4H PRN IV NAUSEA AND/OR VOMITING; Start 04/19/19 at 12:30 Hydralazine HCl (Apresoline) 10 mg Q3 PRN IV ELEVATED BLOOD PRESSURE Last admi nistered on 04/19/19at 17:46; Admin Dose 10 MG; Start 04/19/19 at 16:00 Carvedilol (Coreg) 3.125 mg BID PO Last administered on 04/21/19 08:27; Admin Dose 3.125 MG; Start 04/19/19 at 21:00 Insulin Aspart (Novolog Insulin Pen) NOVOLOG *MILD* ALGORITHM WITH MEALS BEDTIME SC Last administered on 04/20/19at 20:46; Admin Dose 1 UNIT; Start 04/19/19 at 22:30 Miscellaneous Information 1 ea NOTE XX ; Start 04/19/19 at 22:30 Glucose (Glutose) 15 gm Q15M PRN PO DECREASED GLUCOSE; Start 04/19/19 at 22:30 Glucose (Glutose) 22.5 gm Q15M PRN PO DECREASED GLUCOSE; Start 04/19/19 at 22:30 Dextrose (D50w Syringe) 25 ml Q15M PRN IV DECREASED GLUCOSE; Start 04/19/19 at 22:30 Dextrose (D50w Syringe) 50 ml Q15M PRN IV DECREASED GLUCOSE; Start 04/19/19 at 22:30 Glucagon (Glucagen) 1 mg Q15M PRN IM DECREASED GLUCOSE; Start 04/19/19 at 22:30 Glucose (Glutose) 15 gm Q15M PRN BUCCAL DECREASED GLUCOSE; Start 04/19/19 at 22:30 CHERELLE BARDALES April 21, 2019 12:07
[2019-04-21] MEDS ORDERED: SOD CHLORIDE 0.9% 500 ML ONE (13:18)
[2019-04-21] MEDS ORDERED: SOD CHLORIDE 0.9% 1,000 ML IV SCH (13:32)
[2019-04-21] MEDS ORDERED: ZOLPIDEM 5 MG TAB PO PRN (14:00)
[2019-04-21] MEDS ORDERED: ACETAMINOPHEN 325 MG TAB PO PRN (14:00)
[2019-04-21] MEDS ORDERED: OXYCODONE/ACETAMINOPHEN (5/325) TAB PO PRN (14:00)
[2019-04-21] MEDS ORDERED: morphine 2 MG INJ IV PRN (14:00)
[2019-04-21] MEDS: HEPARIN 25000 UNITS/250 ML 250 ML IV SCH (17:04)
--- NOTE | 2019-04-21 19:04 | CARRPT ---
DATE OF PROCEDURE: 04/21/2019 TYPE OF PROCEDURE: 1. Distal aortography with bilateral iliofemoral runoff. 2. Stent placement to right common iliac. ATTENDING PHYSICIAN: Cherelle Baron MD REFERRING PHYSICIAN: Dr. Renee. INDICATION: Claudication. TYPE OF ANESTHESIA: Conscious and local. BRIEF HISTORY: Mr. Linares is a 58-year-old male with history of coronary artery disease, status p ost coronary artery bypass graft surgery who underwent diagnostic left heart catheterization with sub sequent MEAT PASSER and stent placement to [place] LAD distal to insertion of CHACON graft for high-grade stenos is and during that time was found to have high-grade stenosis of the right common iliac, not able to be intervened upon due to contrast load and radiation, now brought back to further assess this lesion for need for stent placement. PROCEDURE: After informed consent was obtained, the patient was brought to the [facility] cardiac catheterization lab where his right groin was prepped and draped in a usual sterile f ashion. 2% lidocaine was infiltrated into the right groin in order to achieve adequate local anesthe sal. With modified Seldinger technique, the femoral artery was cannulated and a 6-Iranian arterial sh eath was placed. A 5-Iranian Omniflush catheter was then passed distal to the lesion and placed in th e distal aorta. At this time, using a power injector, bilateral iliofemoral runoff was undertaken an d oblique images of the iliacs were undertaken to identify the lesion and to assess the patient's dis bradley blood flow. Subsequently, after completion of this, we moved directly to the interventional proc edure. The patient needed a heparin bolus in order to achieve adequate preinterventional ACT. An 8 x 27 mm stent was then passed into the patient's right common iliac just at the chi at the aorta a nd it was a balloon expandable and deployed at 10 atmospheres x2. The balloon was removed. Followup angiogram was obtained revealing excellent deployment of stent, no signs of complication and no resi dual lesion. Subsequently, at this time, an angiographic image of the right femoral arterial inserti on site was then obtained after removal of the stent delivery balloon revealing the sheath to be well placed in right common femoral artery. Subsequently, a 6-Iranian Perclose device was used to seal th e vessels completing procedure. There were no complications. FINDINGS: 1. Distal aortography with bilateral iliofemoral runoff showed the patient on the right to have a ri ght common iliac stenosis after MEAT PASSER still residual stenosis up to approximately 80%, but improved fro m 99% prior. In the patient's mid right external iliac, patient has moderate diffuse disease up to a pproximately 30%. The patient's right SFA thereafter has a mid body 30% to 40% stenosis and poplitea l is free from significant focal stenosis and then has intact 2-vessel runoff down to the foot with t he dorsalis pedis extending into the mid foot and posterior tibial having no significant disease. On the left side, the patient has no significant left common iliac stenosis, mild left external iliac s tenosis. In the mid SFAs, the patient has a focal lesion of approximately 40% and then has intact 1- vessel runoff to the foot with the posterior tibial extending all the way around in the patient's alnie salis pedis just becoming free of disease just at the ankle. 2. PTCA: Prior to PTCA within the patient's right common iliac, he had a focal 70% stenosis residua l after PTCA. Post-stent placement, he has had no residual stenosis, JOE 3 flow throughout the vess el, no signs of complication including perforation, dissection ambulation. TOTAL FLUOROSCOPY TIME: 3.7 minutes. TOTAL CONTRAST: 100 mL. IMPRESSION: High-grade right common iliac stenosis status successful stent placement with an 8 x 27 mm stent. RECOMMENDATIONS: 1. In light of procedure and findings at this time would maintain the patient on baseline Plavix 75 mg 1 tab p.o. daily and aspirin 81 mg 1 tab p.o. daily, which he takes for stents. 2. Maximize medical management. 3. Aggressive risk factor reduction. 4. The patient will be readmitted to the telemetry floor for post-catheterization and continued ely gement of his presenting symptoms. Dictated By: CHERELLE LOUIS/KENA Conf#: [id number] DID#: [id number] CC: DEON PEGUERO MD; DR. RENEE;*EndCC*
[2019-04-21] MEDS ORDERED: HEPARIN 1000 UNITS/ML 10 ML INJ IV PRN (21:00)
[2019-04-22] VITALS (12 sets, daily range): BP systolic 117–135; BP diastolic 60–71; PULSE 65–85; RESP 18–20
[2019-04-22] MEDS: INSULIN ASPART [NOVOLOG] 3 ML PEN SC SCH ×4 (07:55→21:00)
[2019-04-22] MEDS: ASPIRIN (EC) 81 MG TAB PO SCH (08:37)
[2019-04-22] MEDS: CLOPIDOGREL 75 MG TAB PO SCH (08:37)
--- NOTE | 2019-04-22 09:26 | PN ---
Date/Time of Note Date/Time of Note DATE: 04/22/19 TIME: 09:24 Assessment/Plan VTE Prophylaxis Risk score (from Ns)>0 risk: 3 SCD applied (from [facility]): No SCD contraindicated: other Pharmacological prophylaxis: heparin Lines/Catheters IV Catheter Type (from [facility]): Saline Lock Urinary Cath still in place: No Assessment/Plan Hospital Course SUBJECTIVE: The patient denies any chest pain. Complains of minimal bilateral inguinal area discomfort. OBJECTIVE: Physical Exam General: Obese, 58 year-old male lying in bed in no apparent distress. HEENT: Normocephalic, atraumatic. Eyes: Anicteric sclerae, conjunctivae clear. ENT: Nasal septum midline, oral mucosa moist. Neck: Short and obese. Respiratory: Bilaterally diminished breath sounds. No use of accessory muscles of respiration. Expiratory wheezing. Cardiovascular: S1, S2 heard. No murmurs or gallops. Abdomen: Soft, nontender, and nondistended. Bowel sounds positive in all 4 quadrants. Genitourinary: Deferred. Extremities: No cyanosis, no clubbing, no edema. Peripheral pulses palpable. Neurologic: The patient is awake, alert, and oriented. Skin: Normal skin turgor. No skin rashes. Labs & Vitals per chart ASSESSMENT & PLAN 58-year-old male with comorbidities including hypertension, dyslipidemia, DM, CAD status post coronary artery stenting, ischemic cardiomyopathy, and nicotine use who underwent an elective left heart catheterization because of abnormal stress test with PTCA and stent placement to [place] LAD and PTCA to right common iliac and right external iliac artery. 1. CAD. -Status post PTCA and stenting to the [place] LAD with a drug-eluting stent on 04/18/2019. -Continue dual antiplatelet therapy. -Continue statins. 2. Peripheral artery disease. 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 -S/P distal aortography w/ B/L iliofemoral runoff and stent placement to the right common iliac artery on 04/21/2019. -Continue dual antiplatelet therapy. 3. Ischemic cardiomyopathy. -2D echocardiogram done at the outside facility in December 2018 showed ejection fraction 40 to 45%. -Continue beta-blockers. -Initiation of HEMANTH inhibitor/ARB will be deferred to cardiology. 4. Hypertension. -Continue antihypertensives. 5. Dyslipidemia. -Continue the patient on statins. 6. DM. -Medication reconciliation shows no medications for DM. -A1C 7.2. -Patient denied using any diabetes medications. -On SSI. 7. Nicotine use. -Refused nicotine patch. -Cessation will be advised. 8. Obesity. -BMI of 31 kg/m. -Will advise weight reduction. 9. Fluids, electrolytes, and nutrition. -Low-cholesterol, low carbohydrate diet. 10. DVT prophylaxis. -Ambulation. 11. Plan. -Continue dual antiplatelet therapy. -Await clearance from cardiology before discharging the patient home. The patient was seen in collaboration with Dr. Doe. Result Diagram: 04/22/19 0700 04/22/19 0700 Results 24hrs Laboratory Tests Test 04/21/19 14:07 04/21/19 15:56 04/21/19 16:42 04/21/19 20:21 White Blood Count 12.2 H Red Blood Count 5.20 Hemoglobin 15.1 Hematocrit 46.4 Mean Corpuscular 89.2 Volume Mean Corpuscular 29.0 Hemoglobin Mean Corpuscular 32.5 Hemoglobin Concent Red Cell 13.5 Distribution Width Platelet Count 261 Mean Platelet Volume 9.9 Immature 0.300 Granulocytes % Neutrophils % 65.6 Lymphocytes % 22.5 Monocytes % 8.4 Eosinophils % 2.6 Basophils % 0.6 Nucleated Red Blood 0.0 Cells % Immature 0.040 H Granulocytes # Neutrophils # 8.0 H Lymphocytes # 2.7 Monocytes # 1.0 H Eosinophils # 0.3 Basophils # 0.1 Nucleated Red Blood 0.0 Cells # Prothrombin Time 14.3 Prothrombin Time 1.1 Ratio INR International 1.10 Normalized Ratio Activated > 180.0 *H 44.4 H Partial Thromboplast Time Bedside Glucose 139 178 Test 04/21/19 23:08 04/22/19 07:00 04/22/19 07:57 Activated 46.8 H Partial Thromboplast Time White Blood Count 10.5 Red Blood Count 4.70 Hemoglobin 13.8 L Hematocrit 41.8 L Mean Corpuscular 88.9 Volume Mean Corpuscular 29.4 Hemoglobin Mean Corpuscular 33.0 Hemoglobin Concent Red Cell 13.2 Distribution Width Platelet Count 240 Mean Platelet Volume 10.4 Immature 0.400 Granulocytes % Neutrophils % 57.0 Lymphocytes % 29.7 Monocytes % 9.1 Eosinophils % 3.2 Basophils % 0.6 Nucleated Red Blood 0.0 Cells % Immature 0.040 H Granulocytes # Neutrophils # 6.0 Lymphocytes # 3.1 H Monocytes # 1.0 H Eosinophils # 0.3 Basophils # 0.1 Nucleated Red Blood 0.0 Cells # Sodium Level 138 Potassium Level 4.0 Chloride Level 106 Carbon Dioxide Level 28 Anion Gap 4 L Blood Urea Nitrogen 14 Creatinine 0.93 Est Glomerular > 60 Filtrat Rate mL/min Glucose Level 129 Calcium Level 8.7 Phosphorus Level 3.7 Magnesium Level 2.1 Bedside Glucose 136 Exam/Review of Systems Exam Vitals Vital Signs Date Temp Pulse Resp B/P (MAP) Pulse Ox O2 O2 Flow FiO2 Time Delivery Rate 04/22/19 98.2 73 18 117/67 97 07:48 (84) 04/21/19 2.0 07:55 04/21/19 Room Air 07:10 Intake and Output 04/21/19 04/21/19 04/22/19 1515:00 23:00 07:00 IntakeIntake Total 400 ml BalanceBalance 400 ml Results Results 24hrs Laboratory Tests Test 04/21/19 14:07 04/21/19 15:56 04/21/19 16:42 04/21/19 20:21 White Blood Count 12.2 H Red Blood Count 5.20 Hemoglobin 15.1 Hematocrit 46.4 Mean Corpuscular 89.2 Volume Mean Corpuscular 29.0 Hemoglobin Mean Corpuscular 32.5 Hemoglobin Concent Red Cell 13.5 Distribution Width Platelet Count 261 Mean Platelet Volume 9.9 Immature 0.300 Granulocytes % Neutrophils % 65.6 Lymphocytes % 22.5 Monocytes % 8.4 Eosinophils % 2.6 Basophils % 0.6 Nucleated Red Blood 0.0 Cells % Immature 0.040 H Granulocytes # Neutrophils # 8.0 H Lymphocytes # 2.7 Monocytes # 1.0 H Eosinophils # 0.3 Basophils # 0.1 Nucleated Red Blood 0.0 Cells # Prothrombin Time 14.3 Prothrombin Time 1.1 Ratio INR International 1.10 Normalized Ratio Activated > 180.0 *H 44.4 H Partial Thromboplast Time Bedside Glucose 139 178 Test 04/21/19 23:08 04/22/19 07:00 04/22/19 07:57 Activated 46.8 H Partial Thromboplast Time White Blood Count 10.5 Red Blood Count 4.70 Hemoglobin 13.8 L Hematocrit 41.8 L Mean Corpuscular 88.9 Volume Mean Corpuscular 29.4 Hemoglobin Mean Corpuscular 33.0 Hemoglobin Concent Red Cell 13.2 Distribution Width Platelet Count 240 Mean Platelet Volume 10.4 Immature 0.400 Granulocytes % Neutrophils % 57.0 Lymphocytes % 29.7 Monocytes % 9.1 Eosinophils % 3.2 Basophils % 0.6 Nucleated Red Blood 0.0 Cells % Immature 0.040 H Granulocytes # Neutrophils # 6.0 Lymphocytes # 3.1 H Monocytes # 1.0 H Eosinophils # 0.3 Basophils # 0.1 Nucleated Red Blood 0.0 Cells # Sodium Level 138 Potassium Level 4.0 Chloride Level 106 Carbon Dioxide Level 28 Anion Gap 4 L Blood Urea Nitrogen 14 Creatinine 0.93 Est Glomerular > 60 Filtrat Rate mL/min Glucose Level 129 Calcium Level 8.7 Phosphorus Level 3.7 Magnesium Level 2.1 Bedside Glucose 136 Medications Medication Current Medications Aspirin (Halfprin) 81 mg DAILY PO Last administered on 04/22/19at 08:37; Admin Dose 81 MG; Start 04/20/19 at 09:00 Clopidogrel Bisulfate (plaVIX) 75 mg DAILY PO Last administered on 04/22/19at 08:37; Admin Dose 75 MG; Start 04/20/19 at 09:00 Acetaminophen (Tylenol Tab) 650 mg Q4H PRN PO PAIN; Start 04/19/19 at 12:30 Oxycodone/ Acetaminophen (Percocet (5/ 325)) 2 tab Q4H PRN PO PAIN; Start 04/19/19 at 12:30 Al Hydrox/Mg Hydrox/Simethicone (Mag-Al Plus) 30 ml Q4H PRN PO GASTROINTESTINAL UPSET; Start 04/19/19 at 12:30 Ondansetron HCl (Zofran Inj) 4 mg Q4H PRN IV NAUSEA AND/OR VOMITING; Start 04/19/19 at 12:30 Hydralazine HCl (Apresoline) 10 mg Q3 PRN IV ELEVATED BLOOD PRESSURE Last administered on 04/19/19at 17:46; Admin Dose 10 MG; Start 04/19/19 at 16:00 Carvedilol (Coreg) 3.125 mg BID PO Last administered on 04/22/19at 08:37; Admin Dose 3.125 MG; Start 04/19/19 at 21:00 Insulin Aspart (Novolog Insulin Pen) NOVOLOG *MILD* ALGORITHM WITH MEALS BEDTIME SC Last administered on 04/20/19at 20:46; Admin Dose 1 UNIT; Start 04/19/19 at 22:30 Miscellaneous Information 1 ea NOTE XX ; Start 04/19/19 at 22:30 Glucose (Glutose) 15 gm Q15M PRN PO DECREASED GLUCOSE; Start 04/19/19 at 22:30 Glucose (Glutose) 22.5 gm Q15M PRN PO DECREASED GLUCOSE; Start 04/19/19 at 22:30 Dextrose (D50w Syringe) 25 ml Q15M PRN IV DECREASED GLUCOSE; Start 04/19/19 at 22:30 Dextrose (D50w Syringe) 50 ml Q15M PRN IV DECREASED GLUCOSE; Start 04/19/19 at 22:30 Glucagon (Glucagen) 1 mg Q15M PRN IM DECREASED GLUCOSE; Start 04/19/19 at 22:30 Glucose (Glutose) 15 gm Q15M PRN BUCCAL DECREASED GLUCOSE; Start 04/19/19 at 22:30 Acetaminophen (Tylenol Tab) 650 mg Q4H PRN PO PAIN; Start 04/21/19 at 14:00 Oxycodone/ Acetaminophen (Percocet (5/ 325)) 1 tab Q4H PRN PO PAIN; Start 04/21/19 at 14:00 Morphine Sulfate (morphine) 1 mg Q1H PRN IV PAIN; Start 04/21/19 at 14:00 Zolpidem Tartrate (Ambien) 5 mg HS MAY REPEAT X 1 PRN PO INSOMNIA; Start 04/21/19 at 14:00 Heparin Sodium (Porcine) (Heparin (1000 Units/ml)) 4,000 unit PER PROTOCOL PRN IV aPTT<47; Start 04/21/19 at 21:00 Heparin Sodium (Porcine) 250 ml @ 10 mls/hr PER PROTOCOL IV Last administered on 04/21/19at 17:04; Admin Dose 10 MLS/HR; Start 04/21/19 at 14:00 LOLA GOODWIN NP Apr 22, 2019 09:26
--- NOTE | 2019-04-22 11:48 | CONS ---
Consult Date/Type/Reason Admit Date/Time April 20, 2019 at 16:45 Initial Consult Date Requesting Provider: AYANNA MCCLOUD MD Date/Time of Note DATE: 04/22/19 TIME: 11:46 Subjective NO acute events -p tc omfortable - good distal pulse - no pian noted. ROS: No fever, no chills, no nausea, no vomiting, no diarrhea/constipation No recent weight changes No chest pain, no PND, no orthopnea No dizziness, blurred vision No thirst, no heat or cold intolerance Objective Vitals Vital Signs Date Temp Pulse Resp B/P (MAP) Pulse Ox O2 O2 Flow FiO2 Time Delivery Rate 04/22/19 98.1 69 18 119/68 97 11:35 (85) 04/21/19 2.0 07:55 04/21/19 Room Air 07:10 Intake and Output 04/21/19 04/21/19 04/22/19 1515:00 23:00 07:00 IntakeIntake Total 400 ml BalanceBalance 400 ml Exam General: WN/WD/NAD, AOx 3 HEENT: Unicetric/atraumatic/EOMI (follow commands) NECK: JVD elevated, no thyromegaly Lymph: no lymphadenopathy HEART: regular with no S3, II/ systolic murmur at apex LUNGS: Coarse sounds ABD: soft, NT, ND, +BS : Intact Neuro: non focal SKIN: chronic changes EXT: trace edema Results/Medications Result Diagram: 04/22/19 0700 04/22/19 0700 Results 24 hrs Laboratory Tests Test 04/21/19 14:07 04/21/19 15:56 04/21/19 16:42 04/21/19 20:21 White Blood Count 12.2 H Red Blood Count 5.20 Hemoglobin 15.1 Hematocrit 46.4 Mean Corpuscular 89.2 Volume Mean Corpuscular 29.0 Hemoglobin Mean Corpuscular 32.5 Hemoglobin Concent Red Cell 13.5 Distribution Width Platelet Count 261 Mean Platelet Volume 9.9 Immature 0.300 Granulocytes % Neutrophils % 65.6 Lymphocytes % 22.5 Monocytes % 8.4 Eosinophils % 2.6 Basophils % 0.6 Nucleated Red Blood 0.0 Cells % Immature 0.040 H Granulocytes # Neutrophils # 8.0 H Lymphocytes # 2.7 Monocytes # 1.0 H Eosinophils # 0.3 Basophils # 0.1 Nucleated Red Blood 0.0 Cells # Prothrombin Time 14.3 Prothrombin Time 1.1 Ratio INR International 1.10 Normalized Ratio Activated > 180.0 *H 44.4 H Partial Thromboplast Time Bedside Glucose 139 178 Test 04/21/19 23:08 04/22/19 07:00 04/22/19 07:57 Activated 46.8 H Partial Thromboplast Time White Blood Count 10.5 Red Blood Count 4.70 Hemoglobin 13.8 L Hematocrit 41.8 L Mean Corpuscular 88.9 Volume Mean Corpuscular 29.4 Hemoglobin Mean Corpuscular 33.0 Hemoglobin Concent Red Cell 13.2 Distribution Width Platelet Count 240 Mean Platelet Volume 10.4 Immature 0.400 Granulocytes % Neutrophils % 57.0 Lymphocytes % 29.7 Monocytes % 9.1 Eosinophils % 3.2 Basophils % 0.6 Nucleated Red Blood 0.0 Cells % Immature 0.040 H Granulocytes # Neutrophils # 6.0 Lymphocytes # 3.1 H Monocytes # 1.0 H Eosinophils # 0.3 Basophils # 0.1 Nucleated Red Blood 0.0 Cells # Sodium Level 138 Potassium Level 4.0 Chloride Level 106 Carbon Dioxide Level 28 Anion Gap 4 L Blood Urea Nitrogen 14 Creatinine 0.93 Est Glomerular > 60 Filtrat Rate mL/min Glucose Level 129 Calcium Level 8.7 Phosphorus Level 3.7 Magnesium Level 2.1 Bedside Glucose 136 Home Meds Reported Medications Nitroglycerin* (Nitrostat*) 0.4 Mg Tab.subl, 0.4 MG SL Q5MIN PRN for CHEST PAIN, BOTTLE 04/19/19 Aspirin (Low Dose Aspirin) 81 Mg Tablet.dr, 81 MG PO DAILY, #30 TAB 04/19/19 Clopidogrel Bisulfate (Clopidogrel) 75 Mg Tablet, 75 MG PO DAILY, #30 TAB 04/19/19 Carvedilol* (Carvedilol*) 3.125 Mg Tablet, 3.125 MG PO BID, #60 TAB 04/19/19 Medications Current Medications Aspirin (Halfprin) 81 mg DAILY PO Last administered on 04/22/19at 08:37; Admin Dose 81 MG; Start 04/20/19 at 09:00 Clopidogrel Bisulfate (plaVIX) 75 mg DAILY PO Last administered on 04/22/19at 08:37; Admin Dose 75 MG; Start 04/20/19 at 09:00 Acetaminophen (Tylenol Tab) 650 mg Q4H PRN PO PAIN; Start 04/19/19 at 12:30 Oxycodone/ Acetaminophen (Percocet (5/ 325)) 2 tab Q4H PRN PO PAIN; Start 04/19/19 at 12:30 Al Hydrox/Mg Hydrox/Simethicone (Mag-Al Plus) 30 ml Q4H PRN PO GASTROINTESTINAL UPSET; Start 04/19/19 at 12:30 Ondansetron HCl (Zofran Inj) 4 mg Q4H PRN IV NAUSEA AND/OR VOMITING; Start 04/19/19 at 12:30 Hydralazine HCl (Apresoline) 10 mg Q3 PRN IV ELEVATED BLOOD PRESSURE Last administered on 04/19/19at 17:46; Admin Dose 10 MG; Start 04/19/19 at 16:00 Carvedilol (Coreg) 3.125 mg BID PO Last administered on 04/22/19at 08:37; Admin Dose 3.125 MG; Start 04/19/19 at 21:00 Insulin Aspart (Novolog Insulin Pen) NOVOLOG *MILD* ALGORITHM WITH MEALS BEDTIME SC Last administered on 04/20/19at 20:46; Admin Dose 1 UNIT; Start 04/19/19 at 22:30 Miscellaneous Information 1 ea NOTE XX ; Start 04/19/19 at 22:30 Glucose (Glutose) 15 gm Q15M PRN PO DECREASED GLUCOSE; Start 04/19/19 at 22:30 Glucose (Glutose) 22.5 gm Q15M PRN PO DECREASED GLUCOSE; Start 04/19/19 at 22:30 Dextrose (D50w Syringe) 25 ml Q15M PRN IV DECREASED GLUCOSE; Start 04/19/19 at 22:30 Dextrose (D50w Syringe) 50 ml Q15M PRN IV DECREASED GLUCOSE; Start 04/19/19 at 22:30 Glucagon (Glucagen) 1 mg Q15M PRN IM DECREASED GLUCOSE; Start 04/19/19 at 22:30 Glucose (Glutose) 15 gm Q15M PRN BUCCAL DECREASED GLUCOSE; Start 04/19/19 at 22:30 Acetaminophen (Tylenol Tab) 650 mg Q4H PRN PO PAIN; Start 04/21/19 at 14:00 Oxycodone/ Acetaminophen (Percocet (5/ 325)) 1 tab Q4H PRN PO PAIN; Start 04/21/19 at 14:00 Morphine Sulfate (morphine) 1 mg Q1H PRN IV PAIN; Start 04/21/19 at 14:00 Zolpidem Tartrate (Ambien) 5 mg HS MAY REPEAT X 1 PRN PO INSOMNIA; Start 04/21/19 at 14:00 Heparin Sodium (Porcine) (Heparin (1000 Units/ml)) 4,000 unit PER PROTOCOL PRN IV aPTT<47; Start 04/21/19 at 21:00 Heparin Sodium (Porcine) 250 ml @ 10 mls/hr PER PROTOCOL IV Last administered on 04/21/19at 17:04; Admin Dose 10 MLS/HR; Start 04/21/19 at 14:00 Assessment/Plan Hospital Course (Demo Recall) 1.Cad s/p cabg with stenosis after insertion of CHACON graft now s/p stent to [place] LAD with PARI - no CP now, BP in giood range 2.chest pain- post stenting 3.abnl mpi-prior to cath - treated. 4. 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 HL 7. DM - con;t to keep euglycemic. ROBERTO VARGAS MD Apr 22, 2019 11:48
[2019-04-22] MEDS: HEPARIN 25000 UNITS/250 ML 250 ML IV SCH (18:07)
[2019-04-23] VITALS: PULSE 64
[2019-04-23 00:09] VITALS: BP 113/57; PULSE 66; RESP 20
[2019-04-23] MEDS: HEPARIN 25000 UNITS/250 ML 250 ML IV SCH (01:32)
[2019-04-23 04:00] VITALS: PULSE 71
[2019-04-23 04:17] VITALS: BP 133/72; PULSE 72; RESP 20
[2019-04-23 07:35] VITALS: BP 137/67; PULSE 69; RESP 18
[2019-04-23] MEDS: INSULIN ASPART [NOVOLOG] 3 ML PEN SC SCH (07:42)
[2019-04-23 08:01] VITALS: PULSE 66
[2019-04-23] MEDS: CLOPIDOGREL 75 MG TAB PO SCH (08:44)
[2019-04-23] MEDS: ASPIRIN (EC) 81 MG TAB PO SCH (08:44)
[2019-04-23] MEDS ORDERED: ATOR40TA68 PO (09:49)
[2019-04-23] MEDS ORDERED: CARV3.1260 PO (09:49)
[2019-04-23] MEDS ORDERED: CLOP75TA27 PO (09:49)
[2019-04-23] MEDS ORDERED: ASPI81TA52 PO (09:49)
--- NOTE | 2019-04-23 09:52 | PDOCDIS ---
Discharge Instructions CONDITION [id number] Patient Condition: [id number] Stable HOME CARE INSTRUCTIONS: [id number] Diet Instructions: [id number] Low Fat /Cholesterol [id number] Special Diet: [id number] Low carbohydrate FOLLOW UP/APPOINTMENTS Follow-up Plan Emmanuel Renee MD Specialty: Cardiology Office Address [address] [place] [id number] Office OTHER ORDERS: Other Orders: 1. Take medications as per prescription. Do not stop taking aspirin and Plavix unless you talk to your supervisor type disk quality control. 2. Follow a low-cholesterol, low carbohydrate diet. 3. Resume activities as tolerated. 4. Abstain from using tobacco products. 5. Please follow-up with your supervisor type disk quality control in 2 weeks. 6. Please go to the nearest emergency room if you have any chest pain, significant shortness of breath, significant pain in the lower extremities, or any other unusual signs/symptoms. LOLA GOODWIN NP Apr 23, 2019 09:52
--- NOTE | 2019-04-23 10:00 | DS ---
Date/Time of Note Date/Time of Note DATE: 04/23/19 TIME: 09:56 Discharge Summary Admission/Discharge Info Admit Date/Time April 20, 2019 at 16:45 Discharge Date/Time Discharge Diagnosis 1. CAD. Status post PTCA and stenting to the prairie band LAD with a drug-eluting s tent on 04/18/2019. 2. Peripheral artery disease. -Status post [employer] [facility] to right common iliac and right external iliac artery on . -S/P distal aortography w/ B/L iliofemoral runoff and stent placement to the right common iliac artery on 04/21/2019. 3. Ischemic cardiomyopathy. 2D echocardiogram done at the outside facility in December 2018 showed ejection fraction 40 to 45%. 4. Hypertension. 5. Dyslipidemia. 6. DM. A1C 7.2. 7. Nicotine use. 8. Obesity. BMI of 31 kg/m. ____ Consults 1. Jesús Baron MD, Cardiology. 2. Rigo Garcia MD, Cardiology. Procedures CARDIOLOGY REPORT DATE OF PROCEDURE: 04/21/2019 TYPE OF PROCEDURE: 1. Distal aortography with bilateral iliofemoral runoff. 2. Stent placement to right common iliac. ATTENDING PHYSICIAN: Jesús Baron MD REFERRING PHYSICIAN: Dr. Renee. INDICATION: Claudication. CARDIOLOGY REPORT DATE OF PROCEDURE: 04/19/2019 TYPE OF PROCEDURE: 1. Left heart catheterization. 2. Coronary angiography. 3. Bypass graft angiography including CHACON arterial graft. 4. Percutaneous transluminal coronary angioplasty with placement of Xience drug-eluting stent x1 to mid LAD, 3.0 x 28 mm. 5. Distal aortography. 6. Bilateral iliofemoral runoff. 7. Right femoral angiography. 8. Percutaneous transluminal angioplasty to right common iliac. 9. Percutaneous transluminal angioplasty to right external iliac. 10. Moderate conscious sedation. Hx of Present Illness This is a 58-year-old male with past medical history of hypertension, dyslipidemia, DM, CAD status post coronary artery stenting, obesity, nicotine use. The patient was in the process of getting preop clearance for an elective dental procedure as outpatient. Cardiac stress test done at the journeyman pipefitter's office showed positive stress test. Therefore, the patient was brought electively to [facility] and the patient underwent a left heart catheterization. Catheterization revealed obstructive CAD. The patient had a drug-eluting stent placed to the prairie band LAD. Peripheral angiogram revealed an obstructing right common iliac and external iliac artery and the patient underwent PTCA to these vessels. The patient is being admitted to inpatient setting for further monitoring and further evaluation. Hospital Course After the procedure on 04/18/2019, the patient was admitted to inpatient telemetry floor. The patient had a PTCA and stenting to the prairie band LAD with a drug-eluting stent. During the procedure, the patient was also noticed to have peripheral artery disease and the patient underwent a percutaneous angioplasty to right common iliac and right external iliac artery. However, it was felt that the patient needs stent placement to the right common iliac artery because of significant disease. Therefore, a clinical decision was made to put a stent to the right common iliac artery in 24 to 48 hours in order to avoid contrast- induced nephropathy. After the first procedure, the patient was maintained on dual antiplatelet therapy. The patient was taken to the [facility] on 04/21/2019 and the patient underwent a distal aortography with bilateral iliofemoral runoff and stent placement to the right common iliac artery. Status post second percutaneous intervention, the patient was maintained on heparin drip for more than 24 hours until it was discontinued after confirming with the journeyman pipefitter. The patient was meanwhile maintained on dual antiplatelet therapy. The patient has underlying ischemic cardiomyopathy. The patient was maintained on beta-blockers. The patient did not have enough room (BP) to be started on any HEMANTH inhibitors. The patient has underlying hypertension. The patient was maintained on antihypertensives. He has underlying dyslipidemia. He was maintained on statins. The patient was also noticed to have diabetes mellitus with a hemoglobin A1c of 7.2. The patient refused any prior history of diabetes. The patient was maintained on sliding scale insulin throughout the hospital course and did not require much insulin coverage because of good glycemic trends. The patient was informed about the finding of diabetes mellitus and he was instructed to follow-up with his primary care physician to recheck his A1c level and he was instructed to follow a low carbohydrate diet. The patient is a current nicotine user. The patient has smokes approximately 10 cigarettes/day. He was advised on the importance of quitting the use of nicotine. The patient was offered a nicotine patch during the hospital course but he refused it. The patient is obese with a BMI of more than 31 kg/m. The patient was advised on weight reduction. The patient had a stable hospital course. The patient was cleared by cardiology to be discharged home, to be followed up with outpatient cardiology. Discharge Instructions 1. Take medications as per prescription. Do not stop taking aspirin and Plavix unless you talk to your journeyman pipefitter. 2. Follow a low-cholesterol, low carbohydrate diet. 3. Resume activities as tolerated. 4. Abstain from using tobacco products. 5. Please follow-up with your journeyman pipefitter in 2 weeks. 6. Please go to the nearest emergency room if you have any chest pain, significant shortness of breath, significant pain in the lower extremities, or any other unusual signs/symptoms. The patient verbalized understanding of his discharge instructions. At this time I would like to thank all the consultants for seeing the patient, doing the necessary procedures, and providing clinical recommendations. The patient was seen in collaboration with Dr. Doe. Home Meds Active Scripts Aspirin (Low Dose Aspirin) 81 Mg Tablet.dr, 81 MG PO DAILY, #30 TAB Prov:LOLA GOODWIN NP 04/23/19 Clopidogrel Bisulfate (Clopidogrel) 75 Mg Tablet, 75 MG PO DAILY, #30 TAB Prov:LOLA GOODWIN NP 04/23/19 Carvedilol* (Carvedilol*) 3.125 Mg Tablet, 3.125 MG PO BID, #60 TAB Prov:LOLA GOODWIN NP 04/23/19 Atorvastatin* (Atorvastatin*) 40 Mg Tablet, 40 MG PO QHS, #30 TAB Prov:LOLA GOODWIN NP 04/23/19 Reported Medications Nitroglycerin* (Nitrostat*) 0.4 Mg Tab.subl, 0.4 MG SL Q5MIN PRN for CHEST PAIN, BOTTLE 04/19/19 Follow-up Plan Emmanuel Renee MD Specialty: Cardiology Office Address [address] [place] [address] Office Primary Care Provider Vera Chester MD Time spent on discharge: > 30 minutes Pending Labs Laboratory Tests Test 04/22/19 11:47 04/22/19 16:49 04/22/19 17:35 04/22/19 21:51 Bedside 168 133 132 Glucose mg/dL (70-220) mg/dL (70-220) mg/dL (70-220) Activated 49.1 Partial Thrombo Sec (23.0-35.0 plast Time ) Test 04/23/19 00:44 04/23/19 07:41 04/23/19 07:52 Activated 55.8 53.9 Partial Thrombo Sec (23.0-35.0) Sec (23.0-35.0 plast Time ) Bedside 135 Glucose mg/dL (70-220) White Blood 9.2 Count 10^3/ul (4.8-1 0.8) Red Blood 4.66 Count 10^6/ul (4.70- 6.10) Hemoglobin 13.6 g/dl (14.0-18. 0) Hematocrit 41.6 % (42.0-52.0) Mean 89.3 Corpuscular fl (82.0-101.0 Volume ) Mean 29.2 Corpuscular pg (29.0-33.0) Hemoglobin Mean 32.7 Corpuscular g/dl (32.0-37. Hemoglobin Conc 0) ent Red Cell 13.2 Distribution % (11.5-14.5) Width Platelet Count 251 10^3/UL (140-4 15) Mean Platelet 10.0 Volume fl (7.4-10.4) Immature 0.400 Granulocytes % % (0.001-0.429 ) Neutrophils % 52.0 % (39.0-77.0) Lymphocytes % 33.1 % (15.0-51.0) Monocytes % 9.3 % (0.0-11.0) Eosinophils % 4.2 % (0.0-7.0) Basophils % 1.0 % (0.0-2.0) Nucleated Red 0.0 Blood Cells % /100WBC (0.0-0 .0) Immature 0.040 Granulocytes # 10^3/ul (0.0-0 .031) Neutrophils # 4.8 10^3/ul (1.6-7 .5) Lymphocytes # 3.1 10^3/ul (0.8-2 .9) Monocytes # 0.9 10^3/ul (0.3-0 .9) Eosinophils # 0.4 10^3/ul (0.0-0 .5) Basophils # 0.1 10^3/ul (0.0-0 .1) Nucleated Red 0.0 Blood Cells # 10^3/ul (0.0-0 .0) Sodium Level 140 mmol/L (135-14 4) Potassium 4.1 Level mmol/L (3.5-5. 1) Chloride Level 105 mmol/L (97-110 ) Carbon Dioxide 28 Level mmol/L (21-31) Anion Gap 7 (5-13) Blood Urea 12 Nitrogen mg/dl (7-20) Creatinine 1.02 mg/dl (0.61-1. 24) Est Glomerular > 60 Filtrat mL/min (>60) Rate mL/min Glucose Level 139 mg/dl (70-220) Calcium Level 9.0 mg/dl (8.4-10. 2) Phosphorus 4.4 Level mg/dl (2.5-4.9 ) Magnesium 2.1 Level mg/dl (1.7-2.5 ) LOLA GOODWIN NP Apr 23, 2019 10:00
--- NOTE | 2019-04-24 17:29 | RADRPT ---
Vent Rate: 73 bpm RR Interval: 820 msec VA Interval: 156 msec QRS Duration: 92 msec QT Interval: 389 msec QTC Interval: 430 msec P-R-T [place]: 52 - -12 - 209 degrees Sinus rhythm.. WITH Ventricular premature complex... anterior infarct, age indeterminate. ST T abnormalities, c/w latheral ischemia abnormal ECG Electronically Signed By: Michael Oro
== END 2019-04-23 11:31 | disposition home or self-care (01) | DRG 247 ==
LOC: SDS 07:41 → TEL 17:10 → SDS 17:30 → INTOOBSV 17:38 → TEL 17:38 → OBSVTOIN 04-20 16:45
PROVIDERS: ADMIT Internal Medicine; ATTEND Internal Medicine
PROC: 4A023N7 Measurement of Cardiac Sampling and Pressure, Left Heart, Percutaneous Approach (ICD-10-PCS; 2019-04-19)
PROC: B211YZZ Fluoroscopy of Multiple Coronary Arteries using Other Contrast (ICD-10-PCS; 2019-04-19)
PROC: B213YZZ Fluoroscopy of Multiple Coronary Artery Bypass Grafts using Other Contrast (ICD-10-PCS; 2019-04-19)
PROC: B218YZZ Fluoroscopy of Left Internal Mammary Bypass Graft using Other Contrast (ICD-10-PCS; 2019-04-19)
PROC: 3E063GC Introduction of Other Therapeutic Substance into Central Artery, Percutaneous Approach (ICD-10-PCS; 2019-04-19)
PROC: B41DYZZ Fluoroscopy of Aorta and Bilateral Lower Extremity Arteries using Other Contrast (ICD-10-PCS; 2019-04-19)
PROC: 027034Z Dilation of Coronary Artery, One Artery with Drug-eluting Intraluminal Device, Percutaneous Approach (ICD-10-PCS; principal; 2019-04-19 09:30)
PROC: 047C3ZZ Dilation of Right Common Iliac Artery, Percutaneous Approach (ICD-10-PCS; 2019-04-19 09:30)
PROC: 047H3ZZ Dilation of Right External Iliac Artery, Percutaneous Approach (ICD-10-PCS; 2019-04-19 09:30)
PROC: 047C3DZ Dilation of Right Common Iliac Artery with Intraluminal Device, Percutaneous Approach (ICD-10-PCS; 2019-04-21)
PROC: B41DYZZ Fluoroscopy of Aorta and Bilateral Lower Extremity Arteries using Other Contrast (ICD-10-PCS; 2019-04-21)
DX: I25.10 Atherosclerotic heart disease of native coronary artery without angina pectoris (principal); E11.51 Type 2 diabetes mellitus with diabetic peripheral angiopathy without gangrene; I70.201 Unspecified atherosclerosis of native arteries of extremities, right leg; I25.5 Ischemic cardiomyopathy; I10 Essential (primary) hypertension; E78.5 Hyperlipidemia, unspecified; E66.9 Obesity, unspecified; F32.9 Major depressive disorder, single episode, unspecified; F17.210 Nicotine dependence, cigarettes, uncomplicated; R94.39 Abnormal result of other cardiovascular function study; R07.9 Chest pain, unspecified; Z95.1 Presence of aortocoronary bypass graft; Z68.31 Body mass index [BMI] 31.0-31.9, adult
CPT/HCPCS: 37220; 37221; 71045; 75630; 80048; 80053; 80061; 82962; 83036; 83735; 84100; 84478; 85025; 85610; 85730; 93005; 93459; 99217; G0378; C1725; C1760; C1874; C1875; C1887; C1894; J0360; J0583; J1200; J1644; J1815; J2250; J2270; J3010; J7030; J7040; Q9967